=== PATIENT | female | born 1960 | race Two or more races ===

== ENCOUNTER 2019-09-30 12:54 | Emergency (ER) | payer OTHER ==
[~2019-09-30] VITALS: Ht 157.5 cm; Wt 106.8 kg
[2019-09-30 12:58] VITALS: BP 134/86
[2019-09-30] MEDS ORDERED: ACET-2247 PO (13:06)
[2019-09-30] MEDS ORDERED: ACETAMINOPHEN 500 MG TABLET PO ONE (15:15)
== END 2019-09-30 15:53 | disposition home or self-care (01) ==
LOC: EMS 12:55
DX: M25.562 Pain in left knee (principal); J45.909 Unspecified asthma, uncomplicated; Z88.5 Allergy status to narcotic agent; Z88.6 Allergy status to analgesic agent; Z91.011 Allergy to milk products; W01.0XXA Fall on same level from slipping, tripping and stumbling without subsequent striking against object, initial encounter; Y93.01 Activity, walking, marching and hiking; Y92.89 Other specified places as the place of occurrence of the external cause; Y99.8 Other external cause status
CPT/HCPCS: 29505